=== PATIENT | female | born 1980 | race Caucasian/White ===

== ENCOUNTER → 2020-10-07 | Outpatient (CLI) | payer MEDICAID ==
[~2020-10-07] MED LIST: PHENERGAN 25 MG25 M1 PO
== END ==
LOC: GENOP 00:22
DX: O47.1 False labor at or after 37 completed weeks of gestation (principal); Z3A.32 32 weeks gestation of pregnancy
CPT/HCPCS: 81001; 96360

== ENCOUNTER 2020-11-21 12:13 | Inpatient (IN) | payer OTHER ==
[2020-11-21 14:31] LABS: HEMOGLOBIN 12.2 gm/dl (12.3-15.3); RED BLOOD COUNT 4.08 M/UL (4.00-5.10); WHITE BLOOD COUNT 10.1 K/UL (4.5-11.0)
[2020-11-21] MEDS ORDERED: IBUPROFEN600 MG PO (20:37)
[2020-11-21] MEDS ORDERED: DOCUSATE SODIU100 MG PO (20:37)
[2020-11-22 08:46] LABS: HEMOGLOBIN 10.9 gm/dl (12.3-15.3)
== END 2020-11-23 11:12 | disposition home or self-care (01) | DRG 807 ==
LOC: GENOP 12:13 → OB 13:39
PROVIDERS: ADMIT Obstetrics & Gynecology
PROC: 10E0XZZ Delivery of Products of Conception, External Approach (ICD-10-PCS; principal; 2020-11-21)
PROC: 4A1HXCZ Monitoring of Products of Conception, Cardiac Rate, External Approach (ICD-10-PCS; 2020-11-21)
PROC: 3E02340 Introduction of Influenza Vaccine into Muscle, Percutaneous Approach (ICD-10-PCS; 2020-11-22)
DX: O70.0 First degree perineal laceration during delivery (principal); Z37.0 Single live birth; Z3A.37 37 weeks gestation of pregnancy; Z20.822 Contact with and (suspected) exposure to COVID-19; Z23 Encounter for immunization
CPT/HCPCS: 51702; 82800; 85014; 85018; 85025; 90471; 90686; 90715; G0008; J2590; U0002